=== PATIENT | male | born 1985 | race Caucasian/White ===

== ENCOUNTER 2017-06-18 16:33 | Emergency (ER) | payer BC ==
[2017-06-18 16:56] VITALS: BP 139/79; PULSE 96; TEMP 98
[2017-06-18] MEDS ORDERED: MAG HYDROX/AL HYDROX/SIMETH 30 ML CUP PO STA (17:25)
[2017-06-18 17:29] VITALS: RESP 18
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
== END 2017-06-18 18:25 | disposition home or self-care (01) ==
LOC: EC 16:33
DX: T52.0X1A Toxic effect of petroleum products, accidental (unintentional), initial encounter (principal); R05 Cough; R11.0 Nausea; Z88.0 Allergy status to penicillin
CPT/HCPCS: 71020; 99284